=== PATIENT | male | born 1975 | race Caucasian/White ===

== ENCOUNTER → 2017-08-07 15:21 | Outpatient (CLI) | payer BC, SELFPAY ==
--- NOTE | 2017-08-07 15:27 | XR_ITS ---
XR chest 2V HISTORY: ITS.REASON: WEIGHT LOSS, FORMER SMOKER ORDERING PHYSICIAN: Paul Cook MD PATIENT AGE: 41 years COMPARISON: 10/05/2006 FINDINGS: The cardiomediastinal silhouette and pulmonary vascularity are within normal limits. The lungs are clear without infiltrates, suspicious nodules, or pleural effusions. There are multiple granulomas noted No acute bony abnormalities. IMPRESSION: No change with no acute finding
== END ==
PROVIDERS: PCP Family Medicine; Visit Provider Family Medicine
DX: R63.4 Abnormal weight loss (principal); Z87.891 Personal history of nicotine dependence
CPT/HCPCS: 71046

== ENCOUNTER → 2021-07-07 13:21 | Outpatient (CLI) | payer OTHER, SELFPAY ==
[2021-07-07 14:49] LABS: Basophils % 0.7 % (0.1-2.0); Eosinophils # 0.1 K/mm3 (0.0-0.4); Eosinophils % 1.1 % (0.1-12.0); Hematocrit 52.2 % (42.0-52.0); Lymphocytes # 1.2 K/mm3 (0.7-4.5); Lymphocytes % 20.4 % (10-50); Mean Corpuscular HGB Conc 32.6 g/dL (31.8-35.4); Mean Corpuscular Hemoglobin 34.7 pg (27.0-31.2); Mean Corpuscular Volume 106.6 fl (80-94); Mean Platelet Volume 8.1 fl (7.4-10.4); Monocytes # 0.3 K/mm3 (0.1-1.0); Monocytes % 5.3 % (1.7-9.3); Neutrophils # 4.2 K/mm3 (1.8-7.8); Neutrophils % 72.5 % (37.0-80.0); Platelet Count 281 K/mm3 (142-424); Red Blood Count 4.89 M/mm3 (4.60-6.20); Red Cell Distribution Width 13.2 % (11.5-17.5); White Blood Count 5.8 K/mm3 (4.8-10.8)
[2021-07-07 15:33] LABS: Alanine Aminotransferase 29 U/L (12-78); Albumin Level 4.2 g/dl (3.5-5.0); Albumin/Globulin Ratio 1.4 (1.1-1.8); Alkaline Phosphatase 99 U/L (38-126); Anion Gap 12.4 mEq/L (5-15); Aspartate Amino Transferase 43 U/L (17-59); Bilirubin,Total 1.1 mg/dl (0.2-1.3); Blood Urea Nitrogen 9 mg/dl (9-20); Calcium 9.3 mg/dl (8.4-10.2); Carbon Dioxide 27 mmol/L (22.0-30.0); Chloride 102 mmol/L (98-107); Estimated Glomerular Filt Rate 91 ml/min (>60); GFR (African American) 110 ML/MIN (>60); Glucose 164 mg/dl (74-100); Potassium 4.4 mmoL/L (3.5-5.1); Sodium 137 mmol/L (136-145); Total Protein,Serum 7.2 g/dl (6.3-8.2)
[2021-07-07 15:58] LABS: Thyroid Stimulating Hormone 3.05 uIU/mL (0.465-4.68)
[2021-07-07 16:34] LABS: Vitamin B12 377 pg/mL (239-931)
[2021-07-07 16:50] LABS: Folate 6.65 ng/mL
[2021-07-07 18:17] LABS: Ferritin 174 ng/ml (17.9-464)
[2021-07-09 08:41] LABS: Ceruloplasmin 22.7 mg/dL (16.0-31.0)
[2021-07-09 16:20] LABS: Albumin 3.8 g/dL (2.9-4.4); Alpha-1-Globulin 0.3 g/dL (0.0-0.4); Alpha-2-Globulin 0.9 g/dL (0.4-1.0); Gamma Globulin 1.3 g/dL (0.4-1.8); Protein, Total 7.5 g/dL (6.0-8.5)
[2021-07-10 06:12] LABS: Zinc 54 ug/dL (44-115)
[2021-07-13 23:07] LABS: Vitamin B1 111.8 nmol/L (66.5-200.0)
== END ==
PROVIDERS: PCP Family Medicine; Visit Provider Nurse Practitioner Family
DX: E53.8 Deficiency of other specified B group vitamins (principal); F10.10 Alcohol abuse, uncomplicated; F19.11 Other psychoactive substance abuse, in remission; F39 Unspecified mood [affective] disorder; G25.81 Restless legs syndrome; G47.9 Sleep disorder, unspecified; I10 Essential (primary) hypertension; R06.83 Snoring; R20.0 Anesthesia of skin; R20.2 Paresthesia of skin; R53.83 Other fatigue
CPT/HCPCS: 36415; 80053; 82390; 82525; 82607; 82728; 82746; 83036; 84155; 84165; 84425; 84443; 84630; 85025; 86334

== ENCOUNTER 2021-10-20 09:50 | Emergency (ER) | payer OTHER, SELFPAY ==
[2021-10-20 10:02] VITALS: BP 123/87; PULSE 70; RESP 20; TEMP 36.8; O2SAT 99; BMI 23.1
[2021-10-20 10:38] VITALS: BP 123/87; PULSE 70; RESP 20; TEMP 36.8; O2SAT 99; BMI 22.5
--- NOTE | 2021-10-20 10:41 | XR_ITS ---
FINAL REPORT CLINICAL HISTORY: Right hip pain since last . FINDINGS: RIGHT HIP 2 views were obtained. There is no acute fracture or dislocation. There are moderate degenerative changes. There is no soft tissue abnormality. IMPRESSION: Degenerative change with no acute bony abnormality. Reviewed, Interpreted and Dictated by Cesar Garcia III, MD Transcribed by Josefina York Authenticated and . [facility]
--- NOTE | 2021-10-20 10:53 | EXP.UTC ---
Discharge Plan Disposition Patient Disposition: Home, Self-Care Condition: Good Prescriptions Prescriptions: New cyclobenzaprine 10 mg Tablet 10 mg PO BID PRN (Reason: Muscle Spasm) Qty: 20 0RF methylprednisolone 4 mg Tablets,Dose Pack 4 mg PO DIRECTED Qty: 21 0RF No Action quetiapine 50 mg tablet 50 mg PO HS buspirone 15 mg tablet 15 mg PO TID venlafaxine 75 mg capsule,extended release 24hr 75 mg PO DAILY fluoxetine 10 mg capsule 10 mg PO DAILY benazepril 40 mg tablet 40 mg PO DAILY ropinirole 0.5 mg tablet 0.5 mg PO HS omeprazole 20 mg capsule,delayed release(DR/EC) 20 mg PO DAILY thiamine HCl (vitamin B1) 100 mg tablet 100 mg PO BID Qty: 60 5RF Referrals Follow up/Referrals: Paul Cook MD [Primary Care Provider] - See instructions Activity Restrictions/Add. Instructions Additional Instructions/Restrictions: Go home and rest. It would be best if you rested tomorrow too. No heavy lifting. No twisting. Take the oral medications as directed. The muscle relaxer (cyclobenzaprine--Flexeril) will make you drowsy, so don't drive or operate heavy machinery after taking it. Don't start the oral steroids (medrol dose pack) until tomorrow, since you had the shots in here today. Follow up with your regular doctor. GO TO THE ER FOR ANY WORSENING SYMPTOMS OR CONCERN, ESPECIALLY BOWEL OR BLADDER ISSUES, SADDLE AREA NUMBNESS, FEVER, ETC Clinical Impressions Clinical Impression: Acute pain of right hip Low back pain Qualifiers: Chronicity: unspecified Back pain laterality: right Sciatica presence: with sciatica Sciatica laterality: sciatica of right side Qualified Code(s): M54.41 - Lumbago with sciatica, right side Sciatica Qualifiers: Laterality: right Qualified Code(s): M54.31 - Sciatica, right side Instructions Patient Instructions: Sciatica, DI for Low Back Pain, DI for Sciatica Discharge ED Provider: Hadley Hitchcock [facility] General Stated complaint: RT leg/hip/lower back pain Mode of Arrival: Ambulatory Source of Information: Patient Time Seen by Provider: 10/20/21 11:00 Description of Symptoms (Recalled from Triage Doc. by RN): pt reports moving a trash can last thday, pulled and felt something pop in his lower back. pt states he has since had right hip and leg pain HEENT Symptoms (Recalled from RN notes): No Resp Symptoms (Recalled from RN notes): No Skin Symptoms (Recalled from RN notes): No MS Symptoms (Recalled from RN notes): Yes Functional Status (Recalled from RN notes): n/a History of Present Illness Provider Complaint: He states that 4 nights ago he was taking his trash out when he felt his right hip pop. He has had right lower back pain, right hip pain and pain that radiates down his left leg at times. He denies any fall or injury. He has had similar symptoms in the past. He denies any fever or chills. Related Data Home Medications Medication Instructions Recorded Confirmed benazepril 40 mg tablet 40 mg PO DAILY 07/06/21 09/30/21 fluoxetine 10 mg capsule 10 mg PO DAILY 07/06/21 09/30/21 omeprazole 20 mg capsule,delayed 20 mg PO DAILY 07/06/21 09/30/21 release ropinirole 0.5 mg tablet 0.5 mg PO HS 07/06/21 09/30/21 buspirone 15 mg tablet 15 mg PO TID 09/30/21 09/30/21 quetiapine 50 mg tablet 50 mg PO HS 09/30/21 09/30/21 venlafaxine 75 mg capsule,extended 75 mg PO DAILY 09/30/21 09/30/21 release 24 hr Previous Rx's Medication Instructions Recorded thiamine HCl (vitamin B1) 100 mg 100 mg PO BID #60 tabs 07/06/21 tablet cyclobenzaprine 10 mg tablet 10 mg PO BID PRN Muscle Spasm #20 10/20/21 tabs methylprednisolone 4 mg tablets in 4 mg PO DIRECTED #21 tabs 10/20/21 a dose pack Allergies Allergy/AdvReac Type Severity Reaction Status Date / Time From Penicillin G Sodium Allergy Unknown Uncoded 09/30/21 10:22 Worker's Comp Is this a Worker's Comp case?: No PFSH PFS
[2021-10-20 11:29] VITALS: BP 123/87; PULSE 70; RESP 20; TEMP 36.8
== END 2021-10-20 11:57 | disposition home or self-care (01) ==
LOC: ER 10:04 → UTC 10:04
PROVIDERS: Emergency Provider Nurse Practitioner Family; PCP Family Medicine
DX: M54.41 Lumbago with sciatica, right side
CPT/HCPCS: 73502; 96372; 99212; G0463

== ENCOUNTER → 2021-11-02 12:35 | Outpatient (CLI) | payer OTHER, SELFPAY ==
--- NOTE | 2021-11-02 13:56 | XR_ITS ---
FINAL REPORT TECHNIQUE: 5 views CLINICAL HISTORY: RIGHT LUMBAR RADICULOPATHY...WEAKNESS IN RIGHT FOOT, pain after jumping off porch 3 weeks ago FINDINGS: There is no fracture present. There is no malalignment. There are no significant degenerative changes. IMPRESSION: No acute process. Reviewed, Interpreted and Dictated by Lina Sharma MD Transcribed by Delfina Shirley Authenticated and [facility]
== END ==
PROVIDERS: PCP Family Medicine; Visit Provider Family Medicine
DX: M54.16 Radiculopathy, lumbar region (principal); R29.898 Other symptoms and signs involving the musculoskeletal system
CPT/HCPCS: 72110

== ENCOUNTER 2023-12-07 12:34 | Emergency (ER) | payer SELFPAY ==
[2023-12-07 12:52] VITALS: BP 106/65; PULSE 96; RESP 18; TEMP 36.8; O2SAT 97; BMI 28.8
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
[2023-12-07 13:59] VITALS: BP 106/65; PULSE 96; RESP 18; TEMP 36.8
== END 2023-12-07 14:04 | disposition home or self-care (01) ==
PROVIDERS: Emergency Provider Nurse Practitioner; PCP Family Medicine
DX: M54.50 Low back pain, unspecified (principal)
CPT/HCPCS: 72100; 99213; G0381

== ENCOUNTER 2024-05-03 14:00 | Outpatient (RCR) | payer OTHER, SELFPAY | END 2024-05-03 23:59 | disposition home or self-care (01) | LOC: PT 14:00 | PROVIDERS: Visit Provider Family Medicine | DX: M54.16 Radiculopathy, lumbar region (principal) | CPT/HCPCS: 97014; 97110; 97140; 97163; 97530; G0283 ==

== ENCOUNTER 2024-08-01 13:00 | Outpatient (RCR) | payer OTHER, SELFPAY | END 2024-08-01 23:59 | disposition home or self-care (01) | LOC: PT 13:00 | PROVIDERS: Visit Provider Family Medicine | DX: M54.16 Radiculopathy, lumbar region (principal); M54.41 Lumbago with sciatica, right side; G89.29 Other chronic pain | CPT/HCPCS: 97014; 97110; 97162; G0283 ==

== ENCOUNTER 2024-08-13 09:57 | Outpatient (RCR) | payer OTHER, SELFPAY | END 2024-08-13 23:59 | disposition home or self-care (01) | LOC: PT 09:57 | PROVIDERS: Visit Provider Family Medicine | DX: M54.41 Lumbago with sciatica, right side (principal); G89.29 Other chronic pain; M54.16 Radiculopathy, lumbar region | CPT/HCPCS: 97014; 97164; G0283 ==

== ENCOUNTER 2024-08-26 07:13 | Outpatient (CLI) | payer OTHER, SELFPAY ==
--- OUTSIDE RECORDS SUMMARY | 2024-08-13 11:45 | XMS_ITS | Encounter Summary ---
Author Organization [facility] Address [address] [place] [address] Care Team Providers Care Fire And Explosion Investigator Name Role Phone Paul Cook MD Primary Care Provider + Reason for Referral * MRI/CAT/PET Scan (Routine) - Authorized Specialty Diagnoses / Procedures Referred By Contac t Referred To Contact Diagnoses Subacute left lumbar radiculopathy Chronic midline low back pain with bilateral sciatica Procedures MRI Lumbar Spine Without Contrast MRI Lumbar Spine Without Contrast Paul Cook MD [address] [place] [address] Phone: tel: fax: [facility] [address] [address] Phone: tel: fax: Referral ID Status Reason Start Date Expiration Date V isits Requested Visits Authorized [id number] Authorized 08/13/2024 11/12/2025 1 1 Reason for Visit * Reason Comments Follow-up Mood disorder f/u, b ack pain Encounter Details Date Type Department Care Team (Latest Contact Info) Description 08/13/2024 11:45 AM EDT Office Visit [facility] [address] [facility] [place] [id number] Paul Cook MD [address] [place] [address] [place] [address] Subacute left lumbar radiculopathy (Primary Dx); Chronic midline low back pain with bilateral sciatica; Chronic right-sided low back pain with right-sided sciatica; Anxiety; Bipolar I disorder with depression; Restless leg syndrome Social History Tobacco Use Types Packs/Day Years Used Date Smoking Tobacco: Every Day Cigarettes 1 25 Smokeless Tobacco: Former PHQ-2 Answer Date Recorded Retired PHQ-9: Brief Depression Severity Measure Score 0 04/07/2022 PHQ-2 Answer Date Recorded Patient Health Questionnaire-2 Score 0 02/22/2024 Sex and Gender Information Value Date Recorded Sex Assigned at Not on file Legal Sex Male 2:39 PM EDT Gender Identity Not on file Sexual Orientation Not on file documented as of this encounter Last Filed Vital Signs Vital Sign Reading Time Taken Comments Blood Pressure 130/76 08/13/2024 11:53 AM EDT Pulse 102 08/13/2024 11:53 AM EDT Temperature 35.9 C (96.6 F) 08/13/2024 11:53 AM EDT Respiratory Rate 20 08/13/2024 11:53 AM EDT Oxygen Saturation 97% 08/13/2024 11:53 AM EDT Inhaled Oxygen Concentration - - Weight 103 kg (226 lb) 08/13/2024 11:53 AM EDT Height 182.9 cm (6') 08/13/2024 11:53 AM EDT Body Mass Index 30.65 08/13/2024 11:53 AM EDT documented in this encounter Progress Notes * Paul Cook MD - 08/13/2024 11:45 AM EDT Chief Complaint Patient presents with Follow-up Mood disorder f/u, back pain Subjective Bc Soto is a 48 y.o. who presents for returns for maintenance visit of his mood disorder beingtreated his bipolar disorder. Patient also has restless leg syndrome and hypertension. The issue most impacting his health however has been back pain with radicular symptoms that is developed over the last 6 months and is gradually worsening. Patient initially was referred for physical therapy but due to weather and other travel issues completed very little of the prescribed course. In May patient was referred back to physical therapy for his back pain. He has been attending physical therapy twice per week at his [facility] as an outpatient with the exception of a single week in which he lacks transportation. Physical therapy does not provide any relief from pain. He tells me he had his physical therapy appointment prior to his office visit today and was told he did not need any further physical therapy until further determination was made as to the cause of his back pain. Currently pain is described as being across the lower back with radiation into the left thigh and with some movements pain will radiate down to the foot. He has not gotten any relief from NSAIDs or Lyrica. He inquires about something to help with the pain The following portions of the patient's history were reviewed and updated as appropriate: allergies, current medications, past family history, past medical history, past social history, past surgicalhistory, and problem list. Review of Systems Objective Vital Signs: BP 130/76 Pulse 102 Temp 96.6 ??F (35.9 ??C) Resp 20 Ht 182.9 cm (72 ) Wt 103 kg (226 lb) SpO2 97% BMI 30.65 kg/m?? Physical Exam Vitals reviewed. Constitutional: General: He is in acute distress. Appearance: He is not toxic-appearing. Comments: Patient uses a walking stick to ambulate Cardiovascular: Rate and Rhythm: Normal rate and regular rhythm. Pulses: Normal pulses. Heart sounds: Normal heart sounds. Pulmonary: Effort: Pulmonary effort is normal. Breath sounds: Normal breath sounds. Musculoskeletal: Comments: MSK exam is difficult to perform due to the level of pain the patient is experiencing. Hehas left hamstring weakness Neurological: Mental Status: He is alert. Comments: Due to his level of pain there is a difficult time eliciting reflexes as patient cannot relax well in the office. Result Review Assessment and Plan Diagnoses and all orders for this visit: 1. Subacute left lumbar radiculopathy (Primary) - Cancel: MRI Lumbar Spine Without Contrast; Future - MRI Lumbar Spine Without Contrast; Future - diclofenac (VOLTAREN) 75 MG EC tablet; Take 1 tablet by mouth 2 (Two) Times a Day. Dispense: 60 tablet; Refill: 2 2. Chronic midline low back pain with bilateral sciatica - Cancel: MRI Lumbar Spine Without Contrast; Future - MRI Lumbar Spine Without Contrast; Future - pregabalin (Lyrica) 150 MG capsule; Take 1 capsule by mouth 2 (Two) Times a Day. Dispense: 60 capsule; Refill: 2 - traMADol (ULTRAM) 50 MG tablet; Take 1 tablet by mouth Every 8 (Eight) Hours As Needed for Moderate Pain. Dispense: 30 tablet; Refill: 0 - diclofenac (VOLTAREN) 75 MG EC tablet; Take 1 tablet by mouth 2 (Two) Times a Day. Dispense: 60 tablet; Refill: 2 3. Chronic right-sided low back pain with right-sided sciatica - pregabalin (Lyrica) 150 MG capsule; Take 1 capsule by mouth 2 (Two) Times a Day. Dispense: 60 capsule; Refill: 2 - diclofenac (VOLTAREN) 75 MG EC tablet; Take 1 tablet by mouth 2 (Two) Times a Day. Dispense: 60 tablet; Refill: 2 4. Anxiety Comments: Stable. Refill buspirone Orders: - busPIRone (BUSPAR) 15 MG tablet; Take 1 tablet by mouth 3 (Three) Times a Day. Dispense: 90 tablet; Refill: 5 5. Bipolar I disorder with depression Comments: Stable. Continue Lamictal 100 mg daily as well as quetiapine. Orders: - QUEtiapine (SEROquel) 100 MG tablet; Take 1 tablet by mouth Every Night. Dispense: 30 tablet; Refill: 4 - venlafaxine XR (EFFEXOR-XR) 75 MG 24 hr capsule; Take 1 capsule by mouth Daily. Dispense: 30 capsule; Refill: 5 6. Restless leg syndrome Comments: Stable. Cont. Ropinorol 0.5mg Overview: Cont. Ropinorol 0.5mg Orders: - rOPINIRole (REQUIP) 0.5 MG tablet; Take 1 tablet by mouth Every Night. Take 1 hour before bedtimeDispense: 30 tablet; Refill: 5 Other orders - amLODIPine-benazepril (LOTREL) 5-40 MG per capsule; Take 1 capsule by mouth Daily. Dispense: 90 capsule; Refill: 1 - omeprazole (priLOSEC) 20 MG capsule; Take 1 capsule by mouth Daily. Dispense: 30 capsule; Refill:5 Plan 1. Patient's hypertension is well-controlled and medication was refilled today 2. Patient's mood disorder is stable. He will continue Lamictal, quetiapine, venlafaxine, buspirone 3. Low back pain with radiculopathy is certainly not better and overall seems worse in regards to the level of pain the patient is experiencing. Physical exam is difficult to complete. He has failed conservative treatment and will need to proceed with an MRI and referral to either pain management or spinal surgery Follow Up No follow-ups on file. Patient was given instructions and counseling regarding his condition or for health maintenance advice. Please see specific information pulled into the AVS if appropriate. documented in this encounter Plan of Treatment Upcoming Encounters Date Type Department Care Team (Late st Contact Info) Description 2024 9:00 AM EDT Office Visit [facility] [address] [phone] Paul Cook MD [address] [place] [address] Scheduled Orders Name Type Priority Associated Diagnoses Orde r Schedule MRI Lumbar Spine Without Contrast Imaging Routine Subacute left lumbar radiculopathy Chronic midline low back pain with bilateral sciatica Expected: 08/14/2024, Expires: 11/13/2025 documented as of this encounter Visit Diagnoses Diagnosis Subacute left lumbar radiculopathy- Primary Chronic midline low back pain with bilateral sciatica Chronic right-sided low back pain with right-sided sciatica Anxiety Anxiety state, unspecified Bipolar I disorder with depression Restless leg syndrome Restless legs syndrome (RLS) documented in this encounter Care Teams Fire And Explosion Investigator Relationship Specialty Start Date End Date Paul Cook MD [address] [address] PCP - General Family Medicine 05/24/21 documented as of this encounter
--- NOTE | 2024-08-26 | MR_ITS ---
FINAL REPORT TECHNIQUE: Multiplanar MR without contrast CLINICAL HISTORY: LBP that radiates to both hips COMPARISON: none FINDINGS: Sagittal images show normal vertebral height. Alignment is normal. Marrow signal pattern is unremarkable. L1-2: Unremarkable L2-3: Unremarkable L3-4: Unremarkable L4-5: Broad-based moderate-sized central disc protrusion slightly eccentric to the right causing mild central canal stenosis with compression of the bilateral L5 nerve roots, worse on the right. L5-S1: Unremarkable IMPRESSION: Significant disc protrusion at L4-5. Reviewed, Interpreted and Dictated by Lina Sharma MD Transcribed by Yamila Winston Authenticated and [facility]
--- OUTSIDE RECORDS SUMMARY | 2024-08-26 07:16 | XMS_ITS | Encounter Summary ---
Author Organization [facility] Address [address] [place] [address] Care Team Providers Care Automobile Body Customizer Name Role Phone Paul Cook MD Primary Care Provider + Encounter Details Date Type Department Care Team (Late st Contact Info) Description 10/25/2023 Refill [facility] [address] [place] [address] Paul Cook MD [address] [place] [address] Anxiety; Restless leg syndrome; Bipolar I disorder with depression; Mood disorder; Bipolar I disorder with depression Social History Tobacco Use Types Packs/Day Years Used Date Smoking Tobacco: Every Day Cigarettes 1 25 Smokeless Tobacco: Former PHQ-2 Answer Date Recorded Retired PHQ-9: Brief Depression Severity Measure Score 0 04/07/2022 PHQ-2 Answer Date Recorded Retired PHQ-9: Brief Depression Severity Measure Score 0 04/04/2023 Sex and Gender Information Value Date Recorded Sex Assigned at Not on file Legal Sex Male 2:39 PM EDT Gender Identity Not on file Sexual Orientation Not on file documented as of this encounter Miscellaneous Notes * Telephone Encounter - Annel De RegSched Rep - 10/25/2023 3:38 PM EDT LEFT VOICEMAIL TO SCHEDULE APPOINTMENT HUB TO RELAY * Telephone Encounter - Leah Sadler RegSched Rep - 10/25/2023 10:39 AM EDT Caller: Charles Bc Relationship: Self Best call back number: [phone] Requested Prescriptions: Requested Prescriptions Pending Prescriptions Disp Refills amLODIPine-benazepril (LOTREL) 5-40 MG per capsule 30 capsule 2 Sig: Take 1 capsule by mouth Daily. busPIRone (BUSPAR) 15 MG tablet 90 tablet 5 Sig: Take 1 tablet by mouth 3 (Three) Times a Day. rOPINIRole (Requip) 0.5 MG tablet 30 tablet 5 Sig: Take 1 tablet by mouth Every Night. Take 1 hour before bedtime. QUEtiapine (SEROquel) 100 MG tablet 30 tablet 5 Sig: Take 1 tablet by mouth Every Night. lamoTRIgine (LaMICtal) 100 MG tablet 30 tablet 5 Sig: Take 1 tablet by mouth Daily. Pharmacy where request should be sent: [facility] [place] [phone] [place] [phone] Last office visit with prescribing clinician: 04/04/2023 Last telemedicine visit with prescribing clinician: Visit date not found Next office visit with prescribing clinician: Visit date not found Additional details provided by patient: PHARMACY CLAIMS THAT THERE ARE NO REFILLS Does the patient have less than a 3 day supply: [x] Yes [] No Would you like a call back once the refill request has been completed: [x] Yes [] No If the office needs to give you a call back, can they leave a voicemail: [x] Yes [] No Ryan King Rep 10/25/23 10:40 EDT documented in this encounter Plan of Treatment Upcoming Encounters Date Type Department Care Team (Late st Contact Info) Description 2024 9:00 AM EDT Office Visit [facility] [address] [place] [facility] [place] [address] Paul Cook MD [address] [place] [address] documented as of this encounter Visit Diagnoses Diagnosis Anxiety Anxiety state, unspecified Restless leg syndrome Restless legs syndrome (RLS) Bipolar I disorder with depression Mood disorder Unspecified episodic mood disorder documented in this encounter Care Teams Automobile Body Customizer Relationship Specialty Start Date End Date Paul Cook MD [address] [place] [address] PCP - General Family Medicine 05/24/21 documented as of this encounter
--- OUTSIDE RECORDS SUMMARY | 2024-08-26 07:17 | XMS_ITS | Encounter Summary ---
Author Organization [facility] Address [address] [place] [address] Care Team Providers Care Brass Roller Name Role Phone Paul Cook MD Primary Care Provider + Reason for Visit * Reason Onset Date Comments MRI REQUEST 08/01/2024 Encounter Details Date Type Department Care Team (Late st Contact Info) Description 08/01/2024 Telephone [facility] [address] [place] [address] Paul Cook MD [address] [place] [address] MRI REQUEST Social History Tobacco Use Types Packs/Day Years [...] encounter Miscellaneous Notes * Telephone Encounter - Chitra Nelson RegSched Rep - 08/01/2024 3:14 PM EDT PT HAS AN APPT IN AUGUST. SHOULD WE TRY TO SCHEDULE HIM SOONER? * Telephone Encounter - Chitra Nelson RegSched Rep - 08/01/2024 12:17 PM EDT PT SAID THAT THIS HAS GOTTEN WORSE. IF HE GOES DOWN FOR ANYTHING, HE CAN'T GET BACK UP WITHOUT ASSISTANCE. KNEES WILL POP AND CRACK. GABAPENTIN ISN'T HELPING ANYMORE, EVEN WITH TAKING IT 2X PER DAY. ADVIL- 4 OF THEM 3X PER DAY, THIS IS NOT HELPING EITHER. WALKING CAUSES SHOOTING PAINS INTO HIPS AND BACK. THE PAIN IS UNMANAGEABLE AT THIS TIME AND IS PROGRESSIVELY GETTING WORSE BY THE DAY. DISABILITY IS ALSO WAITING ON MRI WELL. IF AN EARLY APPT IS NEEDED TO GET MRI, PT IS WILLING TO DO THIS.. * Telephone Encounter - Haley Lucas RegSched Rep - 08/01/2024 12:07 PM EDT Caller: Bc Soto Relationship to patient: Self Best call back number: [phone] Chief complaint: BACK, AND BILATERAL HIP PAIN, SCIATIA Type of visit: RADIOLOGY Additional notes:PATIENT IS REQUESTING MRI HE HAS BEEN GOING TO PHYSICAL THERAPY AND THEY RECOMMEND HIM HAVE AN MRI PATIENT HAS A POSSIBLE PINCHED NERVE CAUSING THE PAIN documented in this encounter Plan of Treatment Upcoming Encounters Date Type Department Care Team (Late st Contact Info) Description 2024 9:00 AM EDT Office Visit [facility] [address] [address] Paul Cook MD [address] [place] [address] documented as of this encounter Visit Diagnoses Not on filedocumented in this encounter Care Teams Brass Roller Relationship Specialty Start Date End Date Paul Cook MD [address] [place] [address] PCP - General Family Medicine 05/24/21 documented as of this encounter
--- OUTSIDE RECORDS SUMMARY | 2024-08-26 07:17 | XMS_ITS | Clinical Summary ---
Author Organization [facility] Address [address] [place] [address] Care Team Providers Care Associate Professor Of Geology Name Role Phone Paul Cook MD Primary Care Provider + Allergies Active Allergy Reactions Criticality Noted Date Comments Penicillins Anaphylaxis,Hives High 05/24/2021 Medications atorvastatin (Lipitor) 40 MG tabletIndications: Mixed hyperlipidemia Take 1 tablet by mouth Daily. 90 tablet 3 5 Active lamoTRIgine (LaMICtal) 100 MG tabletIndications: Bipolar I disorder with depression Take 1 tablet by mouth 2 (Two) Times a Day. 60 tablet 5 5 Active pregabalin (Lyrica) 150 MG capsuleIndications :Chronic midline low back pain with bilateral sciatica,Chronic right-sided low back pain with right-sided sciatica Take 1 capsule by mouth 2 (Two) Times a Day. 60 capsule 2 5 Active amLODIPine-benazep ril (LOTREL) 5-40 MG per capsule Take 1 capsule by mouth Daily. 90 capsule 1 5 Active busPIRone (BUSPAR) 15 MG tabletIndications: Anxiety Take 1 tablet by mouth 3 (Three) Times a Day. 90 tablet 5 5 Active omeprazole (priLOSEC) 20 MG capsule Take 1 capsule by mouth Daily. 30 capsule 5 5 Active QUEtiapine (SEROquel) 100 MG tabletIndications: Bipolar I disorder with depression Take 1 tablet by mouth Every Night. 30 tablet 4 5 Active rOPINIRole (REQUIP) 0.5 MG tabletIndications: Restless leg syndrome Take 1 tablet by mouth Every Night. Take 1 hour before bedtime 30 tablet 5 5 Active venlafaxine XR (EFFEXOR-XR) 75 MG 24 hr capsuleIndications :Bipolar I disorder with depression Take 1 capsule by mouth Daily. 30 capsule 5 5 Active diclofenac (VOLTAREN) 75 MG EC tabletIndications: Subacute left lumbar radiculopathy,District Court Administrator toby midline low back pain with bilateral sciatica,Chronic right-sided low back pain with right-sided sciatica Take 1 tablet by mouth 2 (Two) Times a Day. 60 tablet 2 5 Active traMADol (ULTRAM) 50 MG tabletIndications: Chronic midline low back pain with bilateral sciatica Take 2 tablets by mouth Every 8 (Eight) Hours As Needed for Moderate Pain. 60 tablet 5 Active methylPREDNISolone (MEDROL) 4 MG dose packIndications:Ch ronic midline low back pain with bilateral sciatica Take as directed on package instructions . 21 tablet 5 Active amLODIPine-benazep ril (LOTREL) 5-40 MG per capsule Take 1 capsule by mouth Daily. 90 capsule 1 5 025 Discontin ued(Reord er) busPIRone (BUSPAR) 15 MG tabletIndications: Anxiety Take 1 tablet by mouth 3 (Three) Times a Day. 90 tablet 5 5 025 Discontin ued(Reord er) omeprazole (priLOSEC) 20 MG capsule Take 1 capsule by mouth Daily. 30 capsule 5 5 025 Discontin ued(Reord er) QUEtiapine (SEROquel) 100 MG tabletIndications: Bipolar I disorder with depression Take 1 tablet by mouth Every Night. 30 tablet 4 5 025 Discontin ued(Reord er) rOPINIRole (REQUIP) 0.5 MG tabletIndications: Restless leg syndrome Take 1 tablet by mouth Every Night. Take 1 hour before bedtime 30 tablet 5 5 025 Discontin ued(Reord er) venlafaxine XR (EFFEXOR-XR) 75 MG 24 hr capsuleIndications :Bipolar I disorder with depression Take 1 capsule by mouth Daily. 30 capsule 5 5 025 Discontin ued(Reord er) pregabalin (Lyrica) 75 MG capsuleIndications :Chronic right-sided low back pain with right-sided sciatica Take 1 capsule by mouth 2 (Two) Times a Day. 60 capsule 2 5 025 Discontin ued(Reord er) traMADol (ULTRAM) 50 MG tabletIndications: Chronic midline low back pain with bilateral sciatica Take 1 tablet by mouth Every 8 (Eight) Hours As Needed for Moderate Pain. 30 tablet 5 025 Discontin ued(Reord er) Active Problems Problem Noted Date Diagnosed Date Annual physical exam 2023 Assessment & Plan (2023 5:27 PM EDT): Health maintenance: Continue routine health maintenance including routine dentistry, eye exam, safety seatbelt use, exercise, and proper nutrition. Exercise 3-4 times a week, 30-45 mins a day Increase water intake Monitor for acute illnesses Hypercholesterolemia 04/06/2023 Bipolar I disorder with depression 04/04/2023 Assessment & Plan (2023 5:28 PM EDT): Psychological condition is improving with treatment. Continue current treatment regimen. Psychological condition will be reassessed in 6 months. Restless leg syndrome 01/03/2022 Overview (01/03/2022): Cont. Ropinorol 0.5mg Assessment & Plan (01/03/2022 2:25 PM EST): Currently controlled with Requip 0.5 mg daily. Refilled for 3 months Primary hypertension 01/03/2022 Assessment & Plan (2023 5:28 PM EDT): Hypertension is stable and controlled Continue current treatment regimen. Blood pressure will be reassessed in 6 months. Assessment & Plan (01/03/2022 2:25 PM EST): Hypertension is Controlled. Continue current treatment regimen. Blood pressure will be reassessed at the next regular appointment. Alcoholism 07/07/2021 Assessment & Plan (04/07/2022 2:10 PM EST): Patient understands he is taking risks by continuing to drink alcohol even though it is less frequent. continued encouragement was given to attend AA. Assessment & Plan (01/03/2022 2:25 PM EST): Continue to encourage AA attendance. Patient is still drinking but less frequent Mood disorder 07/07/2021 Assessment & Plan (01/03/2022 2:26 PM EST): Psychological condition is unchanged. Continue current treatment regimen. Psychological condition will be reassessed at the next regular appointment. Assessment & Plan (08/18/2021 6:23 PM EDT): Psychological condition is unchanged. Medication changes per orders. Psychological condition will be reassessed 6 weeks. Resolved Problems Problem Noted Date Diagnosed Date Resolved Date ERRONEOUS ENCOUNTER--DISREGARD 06/03/2021 07/07/2021 Encounters Date Type Department Care Team Description 08/22/2024 Telephone [facility] [address] [place] [address] Paul Cook MD 08/13/2024 11:45 AM EDT Office Visit [facility] [address] [address] Paul Cook MD Subacute left lumbar radiculopathy (Primary Dx); Chronic midline low back pain with bilateral sciatica; Chronic right-sided low back pain with right-sided sciatica; Anxiety; Bipolar I disorder with depression; Restless leg syndrome 08/13/2024 Travel 08/01/2024 Telephone [facility] [address] [place] [address] Paul Cook MD MRI REQUEST 06/20/2024 Telephone [facility] [address] [place] [address] Paul Cook MD NEW REFERRAL from Last 3 Months Family History Medical History Relation Name Comments Diabetes Father Obesity Father Kidney disease Maternal Aunt Heart attack Maternal Grandfather Fibromyalgia Mother Hyperlipidemia Mother Hypertension Mother Heart attack Paternal Grandfather Relation Name Status Comments Father Alive Maternal Aunt Alive Maternal Grandfather Mother Alive Paternal Grandfather Social History Tobacco Use Types Packs/Day Years Used Date Smoking Tobacco: Every Day Cigarettes 1 25 Smokeless Tobacco: Former Tobacco Cessation:Ready to Q uit: No; Counseling Given: Not Answered PHQ-2 Answer Date Recorded Retired PHQ-9: Brief Depression Severity Measure Score 0 04/07/2022 PHQ-2 Answer Date Recorded Patient Health Questionnaire-2 Score 0 02/22/2024 Sex and Gender Information Value Date Recorded Sex Assigned at Not on file Legal Sex Male 2:39 PM EDT Gender Identity Not on file Sexual Orientation Not on file Last Filed Vital Signs Vital Sign Reading [...] Mass Index 30.65 08/13/2024 11:53 AM EDT Plan of Treatment Upcoming Encounters Date Type Department Care Team (Late st Contact Info) Description 2024 9:00 AM EDT Office Visit [facility] [address] [place] [address] Paul Cook MD [address] [place] [address] Health Maintenance Due Date Last Done Comments Pneumococcal Vaccine 0-49 (1 of 2 - PCV) 1993 TDAP/TD VACCINES (1 - Tdap) 1993 COLON CANCER SCREENING 5 YEA R SIGMOIDOSCOPY 11/16/2019 COLONOSCOPY 11/16/2019 CT COLONOGRAPHY 11/16/2019 FECAL OCCULT BLOOD TEST 11/16/2019 FIT Testing (1 year) 11/16/2019 HEPATITIS C SCREENING 05/24/2021 COVID-19 Vaccine (1 - 2023-2 5 season) 2024 Postponed from 10/07 (Product Unavailable) INFLUENZA VACCINE 11/06/2024 ANNUAL PHYSICAL 11/14/2024 2023 LIPID PANEL 11/14/2024 2023, 04/04/2023 COLOGUARD 10/23/2026 10/24/2023 COLORECTAL CANCER SCREENING 10/23/2026 Procedures Procedure Name Priority Date/Time Associated Diagnosis Comments LIPID PANEL Routine 2023 3:03 PM EDT Annual physical exam Screening cholesterol level COLOGUARD Routine 10/24/2023 12:31 PM EDT Colon cancer screening from Last 3 Months or Most Recently Relevant to Health Maintenance Results * (ABNORMAL) Lipid Panel (2023 3:03 PM EDT) Total Cholesterol 240(H) 100 - 199 mg/dL [facility] Triglycerides 322(H) 0 - 149 mg/dL [facility] HDL Cholesterol 31(L) >39 mg/dL [facility] VLDL Cholesterol Carlos 60(H) 5 - 40 mg/dL [facility] LDL Chol Calc (NIH) 149(H) 0 - 99 mg/dL [facility] Blood 2023 3:03 PM EDT 2023 Narrative [facility] - 11/16/2023 8:18 AM EDT Performed at: - [address] [id number] Gun Synchronizer: Jonh Orozco PhD, Phone: [phone] Patient Fasting: N us Lesli L [place] BUNCH TRIMMER MOLD LAB BLOOD ORDERABLES Final R esult [facility]) [address] [place] [address], [facility] [address] [place] [address], * Cologuard - Stool, Per Rectum (10/24/2023 12:31 PM EDT) Cologuard Negative Negative 10/29/2023 1:35 PM EDT [facility] (CLIA #:[id number]) Comment: NEGATIVE TEST RESULT. A negative Cologuard result indicates a low likelihood that a colorectal cancer (CRC) or advanced adenoma (adenomatous polyps with more advanced pre-malignant features) is present. The chance that a person with a negative Cologuard test has a colorectal cancer is less than 1 in 1500 (negative predictive value >99.9%) or has an advanced adenoma is less than 5.3% (negative predictive value 94.7%). These data are based on a prospective cross-sectional study of 10,000 individuals at average risk for colorectal cancer who were screened with both Cologuard and colonoscopy. (Mayra T. et al, N Engl J Med 2014;370(14):7525-2150) The normal value (reference range) for this assay is negative. COLOGUARD RE-SCREENING RECOMMENDATION: Periodic colorectal cancer screening is an important part of preventive healthcare for asymptomatic individuals at average risk for colorectal cancer. Following a negative Cologuard result, the [place] [employer] Society and U.S. Multi-Society Task Force screening guidelines recommend a Cologuard re-screening interval of 3 years. References: [place] [employer] Guideline for Colorectal Cancer Screening: https://www.cancer.org/cancer/kgski-xglhos-rbberf/sdruvsbzc-ibwncmwuq-zfqxauv/ac s-rec ommendations.html.; Azam YE, River BRIGGS, Ina LAGUNA, Colorectal Cancer Screening: Recommendations for Physicians and Patients from the U.S. Multi-Society Task Force on Colorectal Cancer Screening , Am J Gastroenterology 2017; 112:9842-9151. TEST DESCRIPTION: Composite algorithmic analysis of stool DNA-biomarkers with hemoglobin immunoassay. Quantitative values of individual biomarkers are not reportable and are not associated with individual biomarker result reference ranges. Cologuard is intended for colorectal cancer screening of adults of either sex, 45 years or older, who are at average-risk for colorectal cancer (CRC). Cologuard has been approved for use by the U.S. FDA. The performance of Cologuard was established in a cross sectional study of average-risk adults aged 50-84. Cologuard performance in patients ages 45 to 49 years was estimated by sub-group analysis of near-age groups. Colonoscopies performed for a positive result may find as the most clinically significant lesion: colorectal cancer [4.0%], advanced adenoma (including sessile serrated polyps greater than or equal to 1cm diameter) [20%] or non- advanced adenoma [31%]; or no colorectal neoplasia [45%]. These estimates are derived from a prospective cross-sectional screening study of 10,000 individuals at average risk for colorectal cancer who were screened with both Cologuard and colonoscopy. (Mayra Mcqueen. et al, N Engl J Med 2014;370(14):8690-1300.) Cologuard may produce a false negative or false positive result (no colorectal cancer or precancerous polyp present at colonoscopy follow up). A negative Cologuard test result does not guarantee the absence of CRC or advanced adenoma (pre-cancer). The current Cologuard screening interval is every 3 years. ([place] [employer] Society and U.S. Multi-Society Task Force). Cologuard performance data in a 10,000 patient pivotal study using colonoscopy as the reference method can be accessed at the following location: www.[facility]/results. Additional description of the Cologuard test process, warnings and precautions can be found at www.[facility].com. Stool specimen (specimen) Specimen from rectum / Unknown 10/24/2023 12:31 PM EDT 10/25/2023 12:05 PM EDT us Paul Cook MD BODY FLUIDS AND STOOLS O RDERABLES Final Result [facility] (CLIA #:[id number]) [address] [place] [address], from Last 3 Months or Most Recently Relevant to Health Maintenance Insurance [facility] Care Teams Associate Professor Of Geology Relationship Specialty Start Date End Date Paul Cook MD [address] [place] [address] PCP - General Family Medicine 05/24/21
--- OUTSIDE RECORDS SUMMARY | 2024-08-26 07:17 | XMS_ITS | Encounter Summary ---
Author Organization [facility] Address [address] [place] [address] Care Team Providers Care Social Welfare Research Worker Name Role Phone Paul Cook MD Primary Care Provider + Encounter Details Date Type Department Care Team (Late st Contact Info) Description 08/22/2024 Telephone [facility] [address] [place] [address] Paul Cook MD [address] [place] [address] Social History Tobacco Use Types Packs/Day Years [...] encounter Miscellaneous Notes * Telephone Encounter - Jacqueline Watkins MA - 08/22/2024 12:38 PM EDT Tried to reach pt back to discuss his concerns about his pain medication not helping, however, wireless caller is unavailable. No way to leave a message. * Telephone Encounter - Zeina Menjivar RegSched Rep - 08/22/2024 11:33 AM EDT Name: Bc Soto Relationship: Self Best Callback Number: [phone] HUB PROVIDED THE RELAY MESSAGE FROM THE OFFICE PATIENT: HAS FURTHER QUESTIONS AND WOULD LIKE A CALL BACK AT THE FOLLOWING PHONE [phone] ADDITIONAL INFORMATION: PATIENT STATES THAT GABAPENTIN AND TRAMADOL DO NOT HELP WITH PATIENTS PAIN IN LOWER BACK, HIPS, AND LEGS. * Telephone Encounter - Kellie Verdin RegSched Rep - 08/22/2024 10:39 AM EDT CALL WOULDN'T GO THROUGH [employer] AUTH WAS JUST APPROVED FOR HIS MRI AND [facility] WILL BE CALLING HIM TO SCHEDULE OR HE CAN CALL THE [facility] IN [place] TO SCHEDULE HUB CAN RELAY documented in this encounter Plan of Treatment Upcoming Encounters Date Type Department Care Team (Late st Contact Info) Description 2024 9:00 AM EDT Office Visit [facility] [address] [place] [address] Paul Cook MD [address] [place] [address] documented as of this encounter Visit Diagnoses Not on filedocumented in this encounter Care Teams Social Welfare Research Worker Relationship Specialty Start Date End Date Paul Cook MD [address] [place] [address] PCP - General Family Medicine 05/24/21 documented as of this encounter
--- OUTSIDE RECORDS SUMMARY | 2024-08-26 07:17 | XMS_ITS | Encounter Summary ---
Author Organization [facility] Address [address] [place] [address] Care Team Providers Care Electric Power Line Examiner Name Role Phone Paul Cook MD Primary Care Provider + Reason for Referral * Physical Therapy (Routine) - Closed Specialty Diagnoses / Procedures Referred By Contac t Referred To Contact Physical Therapy Diagnoses Chronic right-sided low back pain with right-sided sciatica Right lumbar radiculopathy Procedures TX OFFICE/OUTPATIENT NEW MODERATE MDM 45 MINUTES Paul Cook MD [address] [facility] [place] [address] Phone: tel: fax: [facility] [address] [address] Phone: tel: fax: Referral ID Status Reason Start Date Expiration Date V isits Requested Visits Authorized [id number] Closed Specialty Services Required 06/20/2024 09/19/2025 1 1 Scheduling Instructions Schedule with [facility] physical therapy department Reason for Visit * Reason Onset Date Comments NEW REFERRAL 06/20/2024 Encounter Details Date Type Department Care Team (Late st Contact Info) Description 06/20/2024 Telephone [facility] [address] [place] [address] Paul Abreu MD [address] [place] [address] NEW REFERRAL Social History Tobacco Use Types Packs/Day Years [...] encounter Miscellaneous Notes * Telephone Encounter - Kellie Verdin RegSched Rep - 07/04/2024 4:21 PM EDT ORDER HAS BEEN FAXED * Telephone Encounter - Yuly Khan RegSched Rep - 07/04/2024 2:11 PM EDT [facility] CONTACTED OFFICE AND STATED THAT THE REFERRAL THEY RECEIVED STILL HAD A FEBRUARY DATE ON IT. THEY NEED THE REFERRAL TO HAVE A CURRENT DATE ON IT SO THEY CAN ACCEPT IT * Telephone Encounter - Jacqueline Watkins MA - 06/24/2024 6:22 PM EDT LM informing pt that this referral was re-entered on 06-20-24 * Telephone Encounter - Chitra Nelson RegSched Rep - 06/24/2024 1:30 PM EDT PT CALLED TO FUP ON NEW REFERRAL. PLEASE NOTIFY PT WHEN DONE. * Telephone Encounter - Annel De RegSched Rep - 06/20/2024 11:40 AM EDT PATIENTS MRI HAS BEEN DENIED DUE TO NEEDING TO FINISH OUT HIS PHYSICAL THERAPY, PHYSICAL THERAPY ISREQUESTING A NEW REFERRAL DUE TO IT EXPIRING AFTER 30 DAYS documented in this encounter Plan of Treatment Upcoming Encounters Date Type Department Care Team (Late st Contact Info) Description 2024 9:00 AM EDT Office Visit [facility] [address] [place] [id number] Paul Cook MD [address] [place] [address] documented as of this encounter Visit Diagnoses Diagnosis Chronic right-sided low back pain with right-sided sciatica- Primary Right lumbar radiculopathy Thoracic or lumbosacral neuritis or radiculitis, unspecified documented in this encounter Care Teams Electric Power Line Examiner Relationship Specialty Start Date End Date Paul Cook MD [address] [place] [address] PCP - General Family Medicine 05/24/21 documented as of this encounter
--- OUTSIDE RECORDS SUMMARY | 2024-08-26 07:17 | XMS_ITS | Encounter Summary ---
Author Organization [facility] Address [address] [place] [address] Care Team Providers Care Dog License Officer Supervisor Name Role Phone Paul Cook MD Primary Care Provider + Encounter Details Date Type Department Care Team (Latest Contact Info) Description 08/13/2024 Travel Social History Tobacco Use Types Packs/Day Years [...] on file documented as of this encounter Plan of Treatment Upcoming Encounters Date Type Department Care Team (Late st Contact Info) Description 2024 9:00 AM EDT Office Visit [facility] [address] [facility] [address] Paul Cook MD [address] [place] [address] documented as of this encounter Visit Diagnoses Not on filedocumented in this encounter Care Teams Dog License Officer Supervisor Relationship Specialty Start Date End Date Paul Cook MD [address] [place] [address] PCP - General Family Medicine 05/24/21 documented as of this encounter
== END 2024-08-26 23:59 | disposition home or self-care (01) ==
LOC: RAD 07:15
PROVIDERS: PCP Family Medicine; Visit Provider Family Medicine
DX: M51.16 Intervertebral disc disorders with radiculopathy, lumbar region (principal)
CPT/HCPCS: 72148

== ENCOUNTER 2024-12-03 09:02 | Day surgery (SDC) | payer OTHER, SELFPAY ==
[2024-12-03 09:05] VITALS: BP 106/89; PULSE 111; RESP 18; O2SAT 98; BMI 29.8
[2024-12-03] MEDS: BUPIVACAINE 0.25% 10ML INJ 25 MG IJ (09:29)
[2024-12-03] MEDS: LIDOCAINE 1% 5ML PF VIAL 5 ML (09:29)
--- NOTE | 2024-12-03 09:32 | P.PCN_ITS ---
Procedure Date: 12/03/24 Time: 09:15 Anesthesiologist:: Ambrocio Amado CRNA Complications:: None Pre-procedure Diagnosis:: Bilateral sacroiliitis Post-procedure Diagnosis:: Same Indications for Procedure:: Patient is a pleasant 49-year-old male who comes our clinic today for bilateral diagnostic sacroiliac joint injections of local anesthetic. Patient describes low lumbar back pain off the midline bilaterally. Bilateral posterior hip pain. Difficulty transitioning from sitting to standing. Difficulty with ambulation due to low lumbar back pain. He rates his pain 8/10. Procedure Details:: Procedure: Bilateral sacroiliac joint injections under fluoroscopy Informed consent was obtained and the risks and benefits of the procedure were explained to the patient.~ The patient was taken to the procedure room and noninvasive monitors were placed including a noninvasive blood pressure cuff and pulse oximeter.~ The patient was placed prone on the procedure table. Both hips were cleansed using Betadine as a cleansing solution. C-arm fluoroscopy was used to view the right sacroiliac joint.~ The skin and subcutaneous tissues were anesthetized using lidocaine 1.5% and a 25-gauge needle.~ After this, a 22-gauge spinal needle was inserted under fluoroscopic guidance into the inferior aspect of the right sacroiliac joint.~ Omnipaque dye was injected and good spread was seen throughout the joint.~ After this, approximately 5 mL of bupivacaine, 0.25% was incrementally injected into the right sacroiliac joint. We then moved to the left sacroiliac joint.~ The skin and subcutaneous tissues were anesthetized using lidocaine 1.5% and a 25-gauge needle.~ After this, a 22- gauge spinal needle was inserted under fluoroscopic guidance into the inferior aspect of the left sacroiliac joint.~ Omnipaque dye was injected and good spread was seen throughout the joint. After this, approximately 5 mL of bupivacaine, 0.25% was incrementally injected into the left sacroiliac joint.~ The patient tolerated the procedure well with no complications. The patient was observed in the Pain Clinic and then was discharged home neurologically intact. Plan and Disposition:: Patient was discharged without incident.
[2024-12-03 09:33] VITALS: BP 118/72; PULSE 112; RESP 16; O2SAT 96
[2024-12-03 09:57] VITALS: BP 110/73; PULSE 110; RESP 18; O2SAT 94
[2024-12-03 09:58] VITALS: BP 110/73; PULSE 110; RESP 18; O2SAT 94
== END 2024-12-03 09:33 | disposition home or self-care (01) ==
PROVIDERS: PCP Family Medicine; Visit Provider Nurse Anesthetist, Certified Registered
DX: M46.1 Sacroiliitis, not elsewhere classified (principal); F41.9 Anxiety disorder, unspecified; F32.A Depression, unspecified; I10 Essential (primary) hypertension; F17.200 Nicotine dependence, unspecified, uncomplicated; Z88.0 Allergy status to penicillin; Z79.1 Long term (current) use of non-steroidal anti-inflammatories (NSAID); Z79.899 Other long term (current) drug therapy
CPT/HCPCS: G0260; J0665; J2003

== ENCOUNTER 2025-01-28 09:45 | Day surgery (SDC) | payer OTHER, SELFPAY ==
[2025-01-28 09:50] VITALS: BP 124/77; PULSE 75; O2SAT 98; BMI 30.5
[2025-01-28] MEDS: DEXAMETHASONE 10MG/ML 1ML VIAL 10 MG (10:16)
[2025-01-28 10:17] VITALS: BP 128/71; PULSE 66; RESP 18; O2SAT 98
[2025-01-28 10:24] VITALS: BP 128/71; PULSE 69; RESP 18; O2SAT 99
--- NOTE | 2025-01-28 10:27 | P.PCN_ITS ---
Procedure Date: 01/28/25 Time: 10:15 Anesthesiologist:: Ambrocio Amado CRNA Complications:: None Pre-procedure Diagnosis:: Degenerative disc lumbar spine. Lumbar radiculopathy. Post-procedure Diagnosis:: Same. Indications for Procedure:: Patient is a very pleasant 49-year-old male who comes to our clinic today for lumbar epidural steroid injection at the L4-5 level. Patient describes low lumbar back pain that is constant, dull, aching. Patient also reports bilateral hip and leg radicular symptoms to the feet. He rates his pain 7/10. Procedure Details:: Procedure: Lumbar epidural steroid injection under fluoroscopy Informed consent was obtained and the risks and benefits of the procedure were explained to the patient. The patient was taken to the procedure room and noninvasive monitors placed, including noninvasive blood pressure cuff and pulse oximeter. The back was viewed using C-arm Fluoroscopy and prepped using Chloraprep as a cleansing solution and the L4-L5 interspace was palpated. Skin and subcutaneous tissues were anesthetized using lidocaine 1.5% and a 25-gauge needle. After this, an 18-gauge Touhy epidural needle was placed into the L4-L5 interspace and advanced using fluoroscopic guidance and loss of resistance to air until the epidural space was encountered. After confirmation of needle placement in the epidural space, with dye, a solution containing normal saline, 3 mL and dexamethasone 10 mg were incrementally injected into the lumbar epidural space. The patient tolerated the procedure well with no complications. The patient was observed in the Pain Clinic and then discharged home neurologica lly intact. Plan and Disposition:: Patient was discharged without incident.
[2025-01-28 10:31] VITALS: BP 138/69; PULSE 67; O2SAT 100
== END 2025-01-28 10:33 | disposition home or self-care (01) ==
PROVIDERS: PCP Family Medicine; Visit Provider Nurse Anesthetist, Certified Registered
DX: M51.16 Intervertebral disc disorders with radiculopathy, lumbar region (principal); I10 Essential (primary) hypertension; F32.A Depression, unspecified; F41.9 Anxiety disorder, unspecified; Z72.0 Tobacco use
CPT/HCPCS: 62323; J1100